=== PATIENT | male | born 1950 | race Two or more races ===

== ENCOUNTER 2023-04-28 07:45 | Outpatient (CLI) | payer OTHER ==
[~2023-04-28 07:45] MED LIST: PRILOSEC; [UNRECOGNIZED DRUG - OTHER]
== END 2023-04-28 07:55 | disposition home or self-care (01) ==
LOC: NUCLEAR 07:45
PROVIDERS: ATTEND Internal Medicine Cardiovascular Disease
DX: I87.2 Venous insufficiency (chronic) (peripheral) (principal)

== ENCOUNTER → 2023-05-11 10:17 | Outpatient (CLI) | payer OTHER | END | disposition home or self-care (01) | LOC: NUCLEAR 09:00 | PROVIDERS: ATTEND Internal Medicine Cardiovascular Disease | DX: I73.9 Peripheral vascular disease, unspecified (principal) ==